=== PATIENT | female | born 1945 | race Caucasian/White ===

== ENCOUNTER → 2017-01-27 | Outpatient (CLI) | payer MEDICARE, OTHER ==
--- NOTE | 2017-01-27 08:23 | RAD ---
Indication chest congestion and cough. PA and lateral views of the chest were obtained. Comparison is made to an exam 08/25/2016. Note is made of a CT examination of the chest 09/27/2016. Interstitial prominence compatible with chronic and fibrotic changes, as referenced on the CT examination, is noted. Interstitial prominence appears, however, slightly improved relative to the previous plain film exam suggesting improvement in interstitial inflammation or interstitial edema on that prior plain film study. A new finding in the chest is not seen. There is no focal consolidated pneumonia. IMPRESSION: Interstitial changes, probably chronic. A focal process is not seen. The appearance of the chest appears improved slightly relative to the previous plain film exam
== END | disposition home or self-care (01) ==
LOC: DXRADRC 07:50
PROVIDERS: ATTEND Physician Assistant Medical
DX: R09.89 Other specified symptoms and signs involving the circulatory and respiratory systems (principal)
CPT/HCPCS: 71020

== ENCOUNTER → 2017-07-05 | Outpatient (CLI) | payer MEDICARE, OTHER ==
--- NOTE | 2017-07-05 08:32 | RAD ---
EXAM: Chest, 2 views. HISTORY: Congestion. COMPARISON: 01/27/2017. FINDINGS: Frontal and lateral views of the chest are obtained. There is stable mild diffuse interstitial prominence. There is no consolidation, effusion or pneumothorax. The heart is normal in size. IMPRESSION: Stable mild diffuse interstitial prominence. This may be due to chronic interstitial change. There is no marlo congestion.
== END | disposition home or self-care (01) ==
LOC: DXRADRC 08:18
PROVIDERS: ATTEND Physician Assistant Medical
DX: R09.89 Other specified symptoms and signs involving the circulatory and respiratory systems (principal)
CPT/HCPCS: 71020

== ENCOUNTER → 2017-07-20 | Outpatient (CLI) | payer MEDICARE, OTHER ==
--- NOTE | 2017-07-20 10:47 | RAD ---
CT of the chest without contrast, 07/20/2017: History: Follow-up abnormal CT exam Noncontrast scans were obtained and compared to a study from 09/27/2016. There are emphysematous changes in the lungs. There are scattered linear parenchymal scars including the medial aspect of the right lung base. There are mild pleural/parenchymal opacities in the inferomedial aspects of the right middle lobe and lingula, also probably representing scarring. No pulmonary mass or significant consolidation is seen. There is no evidence of pleural fluid. There is mild aortic calcific plaquing without evidence of aneurysm. Minimal scattered coronary artery calcifications are noted. There are small mediastinal lymph nodes without evidence of pathologic enlargement. There is a single moderate size gallstone in the gallbladder. No pericholecystic edema or gallbladder wall thickening is seen. The previously seen sclerotic focus in the right transverse process at L1 appears unchanged and again is most likely a bone island. IMPRESSION: 1. Emphysema with moderate bilateral scarring. 2. Calcific plaquing of the aorta and coronary arteries. 3. Cholelithiasis PQRS Compliance Statement: One or more of the following individualized dose reduction techniques were utilized for this examination: 1. Automated exposure control 2. Adjustment of the mA and/or kV according to patient size 3. Use of iterative reconstruction technique
== END | disposition home or self-care (01) ==
LOC: CT 09:16
PROVIDERS: ATTEND Family Medicine
DX: J43.9 Emphysema, unspecified (principal); K80.20 Calculus of gallbladder without cholecystitis without obstruction; R91.8 Other nonspecific abnormal finding of lung field; I25.10 Atherosclerotic heart disease of native coronary artery without angina pectoris; I70.0 Atherosclerosis of aorta; R06.02 Shortness of breath
CPT/HCPCS: 71250

== ENCOUNTER → 2020-01-14 | Outpatient (CLI) | payer MEDICARE, OTHER ==
[~2020-01-14] MED LIST: IOHEXOL 240 MG/ML 50ML VIAL. ONE; IOHEXOL 300 MG/ML 75 ML VIAL. IV ONE
[2020-01-14 09:39] LABS: CREATININE 0.6 mg/dL (0.6-1.0)
--- NOTE | 2020-01-14 09:48 | RAD ---
THYROID ULTRASOUND History: Hypothyroidism. Comparison: CT chest without contrast July 20, 2017. Technique: Multiple grayscale and color Doppler images of the thyroid gland were obtained. Findings: Measurements in length, AP (height), and transverse (width), respectively, unless otherwise stated. The isthmus measures 3 mm. The right thyroid lobe measures 4.6 x 1.8 x 2.4 cm. The left thyroid lobe measures 4.8 x 1.3 x 2 cm. The thyroid gland is hypoechoic and heterogeneous and lobular. There are echogenic internal striations. Vascularity is mildly increased. There is a hypoechogenicity of the posterior inferior right thyroid lobe that may be a lobulation or alternatively could be a parathyroid adenoma. There is no discrete thyroid nodule. ACR Thyroid Imaging, Reporting And Data System (TI-RADS): White Paper Of The ACR TI-RADS Committee. Journal of the [employer], volume 14, issue 5, pages 587-595 (February 2017). IMPRESSION: 1. The thyroid gland is heterogeneous and hypoechoic with echogenic internal striations and is mildly hypervascular. Thyroiditis is in the differential. 2. There is an oval hypoechogenicity posterior to the inferior right thyroid lobe that may be a lobulation versus a parathyroid adenoma. Suggest correlation with laboratory values. Electronically signed by: Dyllan Pearson MD (01/14/2020 9:45 AM) [id number]
[2020-01-14] MEDS: IOHEXOL 240 MG/ML 50ML VIAL. PO ONE (09:52)
--- NOTE | 2020-01-14 11:36 | RAD ---
PQRS Compliance Statement: One or more of the following individualized dose reduction techniques were utilized for this examination: 1. Automated exposure control 2. Adjustment of the mA and/or kV according to patient size 3. Use of iterative reconstruction technique CT NECK CHEST ABD PELVIS W CON Clinical Indication: Newly diagnosed with breast cancer. Left lumpectomy x1 month ago. Comparison: CT chest without contrast July 20, 2017. Technique: Helical CT imaging of the neck, chest, abdomen and pelvis is performed after 75 cc of Omnipaque 300 IV contrast. Oral contrast also administered. Findings: The visualized brain is without midline shift or mass effect. The globes and orbits are intact. Tiny mucous retention cysts or polyps are seen in the right maxillary sinus. Mastoid air cells are clear. Parapharyngeal fat planes are preserved. Parotid, submandibular, and thyroid glands are symmetric. There is no cervical adenopathy. Patient is edentulous. There is degenerative spondylosis of C6/C7. There is minimal grade 1 anterolisthesis of C4 on C5 and C5 on C6 and C7 on T1 and T1 on T2. There are post therapy changes of the upper left breast. There is fluid collection measuring 2.3 x 3.1 cm that is likely a seroma. There is no axillary adenopathy. There is no central pulmonary embolus. The great vessels are normal caliber. There is no mediastinal or hilar adenopathy. There is mild coronary artery disease. The cardiac size is normal, no pericardial effusion. There is no pleural abnormality. There is moderate centrilobular emphysema. The central airways are patent. There is minimal atelectasis or scarring in the right lower lobe. No pulmonary nodule is identified. Cholelithiasis. The liver, spleen, pancreas, adrenal glands, and abdominal aorta caliber are normal. Kidneys enhance symmetrically, no hydronephrosis. The stomach is normal. Oral contrast reaches the colon indicating there is no small bowel obstruction. The appendix is normal. There is no colon wall thickening. There is distal colon diverticulosis. There is no abdominal adenopathy or free fluid. The urinary bladder is normal. Hysterectomy. No pelvic free fluid. There is no iliac or inguinal adenopathy. There is bilateral L5 spondylolysis. There is grade 1 anterolisthesis of L5 on S1. There is mild grade 1 retrolisthesis of L4 on L5. No osteolytic or blastic lesion is identified. IMPRESSION: 1. No CT evidence of metastatic disease in the neck, chest, abdomen, or pelvis. 2. There are post therapy changes of the upper left breast. There is probable seroma. 3. Moderate centrilobular emphysema. 4. Cholelithiasis. 5. Distal colon diverticulosis. Electronically signed by: Dyllan Pearson MD (01/14/2020 11:33 AM) [id number]
== END | disposition home or self-care (01) ==
LOC: US 08:00
DX: C50.212 Malignant neoplasm of upper-inner quadrant of left female breast (principal); K80.20 Calculus of gallbladder without cholecystitis without obstruction; E06.9 Thyroiditis, unspecified; M47.812 Spondylosis without myelopathy or radiculopathy, cervical region; I25.10 Atherosclerotic heart disease of native coronary artery without angina pectoris; J43.2 Centrilobular emphysema; K57.30 Diverticulosis of large intestine without perforation or abscess without bleeding; M43.06 Spondylolysis, lumbar region
CPT/HCPCS: 36415; 70491; 71260; 74177; 76536; 82565; 84520; Q9966

== ENCOUNTER → 2020-03-13 | Outpatient (CLI) | payer MEDICARE, OTHER ==
--- NOTE | 2020-03-13 13:55 | RAD ---
CHEST PA LATERAL History: Reason: COUGH / Spl. Instructions: / History: Comparison: None. Findings: Frontal and lateral views of the chest were obtained. The cardiomediastinal silhouette is normal. Pulmonary fibrosis COPD is present. Interstitial thickening of the lower lung mcconnell similar to previous exam. Pulmonary vasculature is normal. The lungs are clear. No pleural effusion or pneumothorax is seen. There is no acute bone abnormality. IMPRESSION: No acute cardiopulmonary process. Separately. Electronically signed by: Sim Cisneros MD (03/13/2020 1:52 PM) [id number]
== END | disposition home or self-care (01) ==
LOC: DXRAD 13:27
PROVIDERS: ATTEND Family Medicine
DX: J92.9 Pleural plaque without asbestos (principal); J84.10 Pulmonary fibrosis, unspecified; J44.9 Chronic obstructive pulmonary disease, unspecified
CPT/HCPCS: 71046

== ENCOUNTER → 2020-03-30 | Outpatient (CLI) | payer MEDICARE ==
--- NOTE | 2020-03-30 13:29 | RAD ---
DATE: 03/30/2020 EXAM: MAMMO TYREL DIAG LT HISTORY: Status post lumpectomy for the small superior left breast invasive breast cancer. Surveillance. COMPARISON: Screening mammogram of 08/14/2019, left diagnostic mammogram of 08/23/2019. TECHNIQUE: CC and MLO views of the left breast were performed. Left breast tomosynthesis was performed in CC and MLO projections. This study was interpreted with the benefit of Computerized Aided Detection (CAD). FINDINGS: Breast Density: SCATTERED The breast parenchyma shows scattered fibroglandular densities. Breast parenchyma level B Interval development of a 2.8 cm spiculated isodense mass in the superior middle third left breast, replacing the previously noted nodule previously described as a malignancy from previous biopsy. This is consistent with a benign lumpectomy cavity. IMPRESSION: Benign postsurgical changes in the superior left breast. No evidence of residual or recurrent malignancy. BI-RADS CATEGORY: 2 BENIGN FINDING(S) RECOMMENDED FOLLOW-UP: 6M 6 MONTH FOLLOW-UP Annual screening mammography is recommended, unless clinically indicated sooner based on symptoms or change in physical exam. PQRS compliance statement: Patient information was entered into a reminder system with a target due date 08/15/2020 for the next mammogram. Mammography is a sensitive method for finding small breast cancers, but it does not detect them all and is not a substitute for careful clinical examination. A negative mammogram does not negate a clinically suspicious finding and should not result in delay in biopsying a clinically suspicious abnormality. "Our facility is accredited by the [employer] Mammography Program."
== END | disposition home or self-care (01) ==
LOC: MAMMO 12:30
PROVIDERS: ATTEND Internal Medicine Hematology & Oncology
DX: C50.212 Malignant neoplasm of upper-inner quadrant of left female breast (principal)
CPT/HCPCS: 77065; G0279; 77061

== ENCOUNTER → 2020-04-14 | Outpatient (CLI) | payer MEDICARE ==
--- NOTE | 2020-04-14 11:55 | RAD ---
EXAM: DUAL ENERGY X-RAY ABSORPTIOMETRY (DEXA). HISTORY: Postmenopausal screening. FINDINGS: The lowest measured T-score is -1.5 in the right femoral neck, based on a bone mineral density of 0.826 g/cm^2. Refer to the worksheets for full detail. No comparison examinations are available. IMPRESSION: Low bone mass. Bone mineral density yields a T-score between -1.0 and -2.5. Fracture risk is increased. FRAX was not calculated. METHODOLOGY: Dual energy x-ray absorptiometry was performed to measure bone mineral density. The following analysis is based on the 2019 Official Positions of the International Society for Clinical Densitometry: Measurements of the hips and the average of L1-L4 are preferred. When the spine and/or hip cannot be feasibly measured or interpreted, or in the setting of hyperparathyroidism, distal radial bone mineral density may be measured. The lumbar spine T-score is based on the average bone mineral density of L1-L4. In the setting of artifact or anatomic abnormality, some lumbar levels may be excluded, and the remaining levels used for calculation. A single lumbar level is not used for diagnosis, and if only a single level is available for assessment, another anatomic site will be used to assign a diagnosis. The hip T-score is based on the bone mineral density measurement of the femoral neck or total proximal femur of either side, whichever is lowest. Bilateral mean values are not used for diagnosis. The forearm T-score is derived from 33% of the distal radius of the nondominant forearm. For postmenopausal and perimenopausal women, and men age 50 or older, of all ethnic groups, T-scores are calculated through comparison of the current measurement with the NHANES III database standard for females aged 20-29 years. The lowest T-score of the evaluated anatomic sites is used to assign a diagnosis based on the World Health Organization densitometric classification. In premenopausal females and males younger than age 50, a Z-score is calculated based on population specific reference data for patient sex and self-reported ethnicity. Electronically signed by: Kevon Zimmerman MD (04/14/2020 11:52 AM) [id number]
== END ==
LOC: DXRAD 09:49
PROVIDERS: ATTEND Physician Assistant
DX: C50.212 Malignant neoplasm of upper-inner quadrant of left female breast (principal); Z78.0 Asymptomatic menopausal state
CPT/HCPCS: 77080

== ENCOUNTER → 2020-09-21 | Outpatient (CLI) | payer MEDICARE ==
--- NOTE | 2020-09-21 13:32 | RAD ---
DATE: 09/21/2020 12:58 PM EXAM: MAMMO TYREL DIAG BILAT HISTORY: Screening. Patient is status post left breast lumpectomy for breast cancer. COMPARISON: Left diagnostic mammogram of 03/30/2020, 09/18/2019, bilateral mammograms of 08/14/2019 Bilateral CC and MLO views of the breasts were performed. Bilateral breast tomosynthesis was performed in CC and MLO projections. This study was interpreted with the benefit of Computerized Aided Detection (CAD). FINDINGS: Breast Density: SCATTERED The breast parenchyma shows scattered fibroglandular densities. Breast parenchyma level B Negative right diagnostic mammogram. Interval decrease in size of a post lumpectomy scar in the central superior left breast. No developing mass, unexplained architectural distortion or suspicious calcifications. IMPRESSION: Benign findings with no evidence of malignancy BI-RADS CATEGORY: 2 BENIGN FINDING(S) RECOMMENDED FOLLOW-UP: 12M 12 MONTH FOLLOW-UP Annual screening mammography is recommended, unless clinically indicated sooner based on symptoms or change in physical exam. PQRS compliance statement: Patient information was entered into a reminder system with a target due date for the next mammogram. Mammography is a sensitive method for finding small breast cancers, but it does not detect them all and is not a substitute for careful clinical examination. A negative mammogram does not negate a clinically suspicious finding and should not result in delay in biopsying a clinically suspicious abnormality. "Our facility is accredited by the [employer] Mammography Program."
== END ==
LOC: MAMMO 12:38
PROVIDERS: ATTEND Internal Medicine Hematology & Oncology
DX: R92.2 Inconclusive mammogram (principal)
CPT/HCPCS: 77066; G0279; 77062

== ENCOUNTER → 2021-05-11 | Outpatient (CLI) | payer MEDICARE ==
--- NOTE | 2021-05-11 10:55 | RAD ---
EXAM: DUAL ENERGY X-RAY ABSORPTIOMETRY (DEXA). HISTORY: Postmenopausal screening. FINDINGS: The lowest measured T-score is -1.7 in the right femoral neck, based on a bone mineral dens ity of 0.731 g/cm^2. Refer to the worksheets for full detail. There has been a 5.7 percent decrease in density of the lumbar spine and 3.5 percent decrease in dens ity of the right hip compared to a study performed 04/14/2020. IMPRESSION: 1. Low bone mass. Bone mineral density yields a T-score between -1.0 and -2.5. Fracture risk is incre ased. 2. FRAX report: Not calculated. METHODOLOGY: Dual energy x-ray absorptiometry was performed to measure bone mineral density. The foll owing analysis is based on the 2019 Official Positions of the International Society for Clinical Dens itometry: Measurements of the hips and the average of L1-L4 are preferred. When the spine and/or hip cannot be feasibly measured or interpreted, or in the setting of hyperparathyroidism, distal radial bone minera l density may be measured. The lumbar spine T-score is based on the average bone mineral density of L1-L4. In the setting of art ifact or anatomic abnormality, some lumbar levels may be excluded, and the remaining levels used for calculation. A single lumbar level is not used for diagnosis, and if only a single level is available for assessment, another anatomic site will be used to assign a diagnosis. The hip T-score is based on the bone mineral density measurement of the femoral neck or total proxima l femur of either side, whichever is lowest. Bilateral mean values are not used for diagnosis. The forearm T-score is derived from 33% of the distal radius of the nondominant forearm. Electronically signed by: Lorna Rose MD (05/11/2021 10:53 AM) [id number]
== END ==
LOC: DXRAD 09:32
PROVIDERS: ATTEND Internal Medicine Hematology & Oncology
DX: C50.212 Malignant neoplasm of upper-inner quadrant of left female breast (principal); M85.88 Other specified disorders of bone density and structure, other site
CPT/HCPCS: 77080

== ENCOUNTER → 2021-06-22 | Outpatient (CLI) | payer MEDICARE ==
[~2021-06-22] MED LIST changes: -IOHEXOL 240 MG/ML 50ML VIAL. ONE
--- NOTE | 2021-06-22 10:13 | RAD ---
EXAM: Right knee, 3 views. HISTORY: Pain. COMPARISON: None. FINDINGS: 3 views of the right knee are obtained. There is subchondral lucency along the articular as pect of the medial femoral condyle, suggesting a possible osteochondral lesion. There is mild medial compartment spurring. There is a small joint effusion. IMPRESSION: 1. 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 2. Suspected osteochondral lesion along the articular aspect of the medial femoral condyle. Electronically signed by: Lorna Rose MD (06/22/2021 10:11 AM) [id number]
--- NOTE | 2021-06-22 14:14 | RAD ---
EXAMINATION: CT Chest With IV contrast INDICATION:76 years, Female, chronic respiratory failure with hypoxia. History of breast cancer COMPARISON: CT dated 01/14/2020. TECHNIQUE: Spiral CT was obtained from the jugular notch through the posterior costophrenic recess. S agittal and coronal reformats were obtained. Exposure: One or more of the following individualized dose reduction techniques were utilized for thi s examination: 1. Automated exposure control 2. Adjustment of the mA and/or kV according to patient size 3. Use of iterative reconstruction technique. FINDINGS: LUNGS/PLEURA: Central airways are patent. Chronic scarring in the right middle lobe, lingula and bila teral lower lobes. Unchanged moderate centrilobular pulmonary emphysema. No focal consolidation, pleu ral effusion or pneumothorax. New 3 mm pulmonary nodule in the right lung base (series 4 image 93). N ew 6 mm pulmonary nodule in the left lower lobe (series 4 image 77). MEDIASTINUM: No pathologic mediastinal or hilar adenopathy. Nonspecific nonenlarged mediastinal lymph nodes, unchanged since prior exam. The thoracic aorta and pulmonary arteries are normal in caliber. The heart is normal in size. No pericardial effusion. Mild calcified coronary atherosclerosis. The vi sualized thyroid and the esophagus are unremarkable. AXILLA/SOFT TISSUE: No supraclavicular or axillary adenopathy. Postsurgical changes in the left base. UPPER ABDOMEN: Redemonstrated 2.0 cm calcified cholelithiasis. BONES: No evidence of acute fractures or aggressive osseous lesions. IMPRESSION: 1. No acute cardiopulmonary process. 2. Two new pulmonary nodules in both lower lobes measuring up to 6 mm, indeterminate given patient's history of breast cancer. Recommend attention on short-term follow-up exam. 3. Unchanged moderate pulmonary emphysema. 4. Large cholelithiasis. Electronically signed by: Otto Ruggiero MD (06/22/2021 2:12 PM) [id number]
== END ==
LOC: CT 09:49
PROVIDERS: ATTEND Family Medicine
DX: M17.11 Unilateral primary osteoarthritis, right knee (principal); M25.461 Effusion, right knee; R91.8 Other nonspecific abnormal finding of lung field; J43.9 Emphysema, unspecified; K80.20 Calculus of gallbladder without cholecystitis without obstruction; J96.11 Chronic respiratory failure with hypoxia
CPT/HCPCS: 71260; 73562; Q9967

== ENCOUNTER → 2021-09-22 | Outpatient (CLI) | payer MEDICARE ==
--- NOTE | 2021-09-22 13:46 | RAD ---
PROCEDURE: MG DIGITAL BILAT DIAGNOSTIC MAMMO WITH TYREL HISTORY: The patient is 76 years old and is seen for Reason: HX LEFT BREAST CA 2019 / Spl. Instructio ns: / History: . COMPARISON: August 23, 2019 and the September 21, 2020 TECHNIQUE: CC and MLO views of both breasts were obtained. Images were processed by the [employer] computer-aided detection system. DENSITY: There are scattered fibroglandular densities. FINDINGS: Left breast: Post lobectomy changes, similar compared to prior. Additional regions of fat necrosis wi th oil cysts noted. Benign-appearing calcifications. Right breast: Benign-appearing calcifications. No suspicious microcatheter dictation, mass or archite ctural distortion. Unchanged right upper outer small mass, likely intramammary lymph node. IMPRESSION: Stable bilateral mammograms. Recommend annual screening mammograms per [employer] [employer] guidelines. She will be due in one year. BI-RADS category 2 Benign Patient entered into a reminder system for annual screening mammogram. Electronically signed by: Valentín King DO (09/22/2021 1:43 PM) [id number]
== END ==
LOC: MAMMO 12:47
PROVIDERS: ATTEND Internal Medicine Hematology & Oncology
DX: C50.212 Malignant neoplasm of upper-inner quadrant of left female breast (principal)
CPT/HCPCS: 77066; G0279; 77062

== ENCOUNTER → 2021-10-25 | Outpatient (CLI) | payer MEDICARE ==
--- NOTE | 2021-10-25 11:34 | RAD ---
Study: CT chest with contrast INDICATION: Pulmonary nodules. History of breast cancer. COMPARISON: CT chest 06/22/2021 TECHNIQUE: Helical CT imaging of the chest performed after the intravenous administration of 75 cc Om nipaque 300. Coronal and sagittal reformats were obtained. One or more of the following individualized dose reduction techniques were utilized for this examinat ion: 1. Automated exposure control 2. Adjustment of the mA and/or kV according to patient size 3. Use of iterative reconstruction technique. FINDINGS: Lungs: The previously described 3 mm right lower lobe nodule is less conspicuous on this exam. The 6 mm left lower lobe nodule seen on the comparison has resolved. A subpleural nodular density at the la teral aspect of the right lung base, image 85 series 4, is new from the prior but is suggestive of at electasis on coronal images 67 through 69 series 5. Newly seen 3 mm nodule within the right middle lo be on image 74 series 4. Emphysema. Scattered pleuroparenchymal scarring and mild atelectasis. Vasculature: No significant interval change with redemonstration of scattered calcific atherosclerosi s with faint coronary artery involvement. Mediastinum/ulises: No mediastinal or hilar adenopathy has developed. Neck/axilla/chest wall: No significant change. Upper abdomen: Solitary prominent gallstone measuring up to 2.3 cm. No findings to indicate acute cho lecystitis. Bones: No acute or aggressive abnormality. Scattered degenerative changes again with discogenic arthr osis most pronounced at C6-C7. IMPRESSION: 1. Previously described right and left lower lobe nodules have resolved. Newly seen solid 3 mm nodule within the right middle lobe (image 74 series 2). No significant nodule elsewhere or lymphadenopathy . In the setting of background emphysema, the 3 mm nodule would warrant 12 month follow-up but shorte r term follow-up could be considered given a reported history of breast cancer. 2. Additional chronic/unchanged findings described above. Electronically signed by: RAFAEL CORONADO MD (10/25/2021 11:32 AM) [facility]
== END ==
LOC: CT 09:37
PROVIDERS: ATTEND Physician Assistant
DX: J43.9 Emphysema, unspecified (principal); K80.20 Calculus of gallbladder without cholecystitis without obstruction
CPT/HCPCS: 71260; Q9967